=== PATIENT | male | born 1970 | race Caucasian/White ===

== ENCOUNTER 2023-04-13 12:37 | Emergency (ER) | payer MEDICARE ==
[~2023-04-13] VITALS: Ht 177.8 cm; Wt 106.8 kg
[~2023-04-13 12:37] MED LIST: ATOR10TA PO; CLON-529 PO; FENT1PAT10 TD; MODA200T48 PO; OXYC-150 PO; TEST200V33 IM
[2023-04-13 12:52] VITALS: TEMP 98.4
[2023-04-13 12:55] LABS: BASOPHILS % (AUTO) 0.2 % (0-1); EOSINOPHILS # (AUTO) 0.1 X10'3 (0-0.9); EOSINOPHILS % (AUTO) 1.3 % (0-6); HEMATOCRIT 54.9 % (42.0-52.0); LYMPHOCYTES # (AUTO) 1.2 X10'3 (1.1-4.8); LYMPHOCYTES % (AUTO) 12.3 % (21-51); MEAN CORPUSCULAR HEMOGLOBIN 30.9 PG (27.0-31.0); MEAN CORPUSCULAR HGB CONC 33.4 g/dL (33.0-36.5); MEAN CORPUSCULAR VOLUME 92.5 FL (78-98); MEAN PLATELET VOLUME 7.3 FL (7.4-10.4); MONOCYTES # (AUTO) 0.6 X10'3 (0-0.9); MONOCYTES % (AUTO) 6.1 % (2-12); NEUTROPHILS % (AUTO) 80.1 % (42-75); PLATELET COUNT 270 X10'3 (140-440); RED BLOOD COUNT 5.93 X10'6 (4.70-6.10); RED CELL DISTRIBUTION WIDTH 13.9 % (11.5-14.5)
[2023-04-13 13:10] LABS: ALANINE AMINOTRANSFERASE 85 U/L (12-78); ALBUMIN 4.5 G/DL (3.4-5.0); ALBUMIN/GLOBULIN RATIO 1.2 (1.1-1.5); ALKALINE PHOSPHATASE 155 IU/L (46-116); ANION GAP 9 (8-16); ASPARTATE AMINO TRANSFERASE 35 U/L (10-37); BILIRUBIN,TOTAL 0.9 MG/DL (0.1-1.0); BLOOD UREA NITROGEN 16 MG/DL (7-18); BUN/CREATININE RATIO 13.8 (10.0-20.0); CALCIUM 9.6 MG/DL (8.5-10.1); CHLORIDE 100 MMOL/L (99-107); CREATININE 1.16 MG/DL (0.60-1.10); GLUCOSE 98 MG/DL (70-104); POTASSIUM 4.4 MMOL/L (3.5-5.1); SODIUM 137 MMOL/L (135-145); TOTAL CARBON DIOXIDE 27.8 MMOL/L (24-32); TOTAL PROTEIN 8.4 G/DL (6.4-8.2); eGFR 66 ML/MIN
[2023-04-13 13:27] LABS: HEMOGLOBIN 18.3 g/dl (14.0-17.9)
[2023-04-13] MEDS ORDERED: nitroGLYCERIN 0.4mg SUBLingual tab SL PRN (14:20)
[2023-04-13] MEDS ORDERED: aspirin 81mg tab.chew PO ONE (14:20)
[2023-04-13] MEDS ORDERED: ondansetron/PF 4mg/2ml inj IV ONE (15:10)
[2023-04-13] MEDS ORDERED: fentaNYL/PF 50MCG/1 ML 2ML syringe IV ONE ×2 (15:10→17:15)
[2023-04-13] MEDS ORDERED: normal saline 1000ml 1,000 ML IV ONE (15:45)
[2023-04-13] MEDS ORDERED: diazepam inj 5 MG/ML inj. IV ONE (17:15)
[2023-04-13] MEDS ORDERED: OXYC-481 PO (17:45)
--- NOTE | 2023-04-13 18:13 | NUR ---
Verified with Blake Hicks, last fentanyl patches were picked up for a 15 patches for a 30 day supply on 03/17. Pharmacist verified he can greens picker his rx tomorrow morning.
[2023-04-13 18:19] VITALS: BP 126/86; PULSE 103; RESP 18; O2SAT 94
== END 2023-04-13 18:20 | disposition home or self-care (01) ==
LOC: ER 12:38
DX: R07.9 Chest pain, unspecified (principal); G89.29 Other chronic pain; M54.9 Dorsalgia, unspecified; Z87.81 Personal history of (healed) traumatic fracture; Z88.8 Allergy status to other drugs, medicaments and biological substances; Z79.899 Other long term (current) drug therapy
CPT/HCPCS: 36415; 71045; 80053; 83880; 84484; 85025; 93005; 96374; 96375; 99285; J2405; J3010; J3360; J7030